=== PATIENT | male | born 1945 | race Caucasian/White ===

== ENCOUNTER → 2016-09-19 | Outpatient (CLI) | payer OTHER, BC ==
[~2016-09-19] MED LIST: B-CO1TAB29 PO; CLON1TAB3 PO; CODCAP4 PO; HYDR-5688 PO; TRAM-10 PO; VENL150C56 PO; zinc PO
[2016-09-19 17:50] LABS: BLOOD UREA NITROGEN 11 mg/dl (7-18); BUN/CREATININE RATIO 13.6 (10-20); CALCIUM 8.8 mg/dl (8.5-10.1); CARBON DIOXIDE 28 mmol/L (21-32); CHLORIDE 105 mmol/L (98-107); CREATININE 0.84 mg/dl (0.60-1.40); GLUCOSE 97 mg/dl (70-99); POTASSIUM 4.3 mmol/L (3.5-5.1); SODIUM 142 mmol/L (136-145)
== END | disposition home or self-care (01) ==
LOC: C.LABBFT 11:58
PROVIDERS: ATTEND Internal Medicine
DX: I10 Essential (primary) hypertension (principal)

== ENCOUNTER → 2017-03-27 | Outpatient (CLI) | payer OTHER, BC ==
[~2017-03-27] MED LIST changes: -HYDR-5688 PO; +OPTIRAY 320 IV PRN
--- NOTE | 2017-03-27 07:55 | DIAGNOSTIC IMAGING REPORT ---
HEAD COMBO CLINICAL HISTORY: Headache. Dizziness. COMPARISON STUDY: No previous studies for comparison. TECHNIQUE: Axial images of the head were obtained before and after intravenous administration of 94 cc of Optiray 320 IV. FINDINGS: No acute intracranial hemorrhage, midline shift or mass effect is present. Ventricular system is normal. Basilar cisterns are patent. There are no extra-axial collections. There are no findings to suggest acute dural sinus thrombosis or acute territorial infarct. Moderate white matter hypodensity suggests small vessel disease. There is bilateral basal ganglia calcification. No intracranial mass or pathologic enhancement is identified. There is mild polypoid mucosal thickening of the left maxillary sinus. Mastoid air cells are clear. There are no significant calvarial abnormalities. IMPRESSION: 1. No acute intracranial findings. 2. No intracranial mass or pathologic enhancement. 3. Mild mucosal thickening of the left maxillary sinus. Electronically signed by: Cabrera Lara M.D. 03/27/2017 7:54 AM Dictated Date/Time: 03/27/2017 7:50 AM
== END | disposition home or self-care (01) ==
LOC: C.CTS 07:28
PROVIDERS: ATTEND Physician Assistant Medical
DX: R51 Headache (principal)